=== PATIENT | female | born 1965 | race Caucasian/White ===

== ENCOUNTER → 2017-01-23 | Day surgery (SDC) | payer OTHER ==
[~2017-01-23] VITALS: Ht 160 cm; Wt 75.8 kg
[~2017-01-23] MED LIST: 0.9% Sodium Chloride 1,000 ML IV ONE; ACET500C49 PO; ALBU2.5V4 INHALATION; CHOL10008 PO; FERR325T40 PO; LORA10CA9 PO; NAPR250T5 PO; Sodium Chloride LOK Flush 10 mL Syringe IV PRN; TRIA10.8 NS; fentaNYL-PF 50 mCg/mL 2 mL Inj IVPUSH PRN
[2017-01-23 08:06] VITALS: BP 145/93; PULSE 70; RESP 14; O2SAT 99
[2017-01-23 08:51] VITALS: BP 123/67; PULSE 65; RESP 14; O2SAT 95
[2017-01-23 09:01] VITALS: PULSE 74; RESP 16; O2SAT 98
[2017-01-23 09:11] VITALS: BP 112/69; PULSE 77; RESP 16; O2SAT 100
[2017-01-23 09:21] VITALS: BP 113/74; PULSE 67; RESP 16; O2SAT 99
--- NOTE | 2017-01-23 11:37 | ENDO ---
[address] [address] ENDOSCOPY PROCEDURE PATIENT: NAKUL WILSON : 1965 MR#: [id number] ADMIT: 01/23/2017 JOB ID: [id number] DATE: 01/23/2017 TYPE OF OPERATION: Colonoscopy. PREOPERATIVE DIAGNOSIS(ES): Colorectal cancer screening. POSTOPERATIVE DIAGNOSIS(ES): Sigmoid diverticulosis. ANESTHESIA: 1. Fentanyl 100 mcg. 2. Versed 5 mg IV administered. COMPLICATION: None. BLOOD LOSS: Minimal. DESCRIPTION OF PROCEDURE: After risks and benefits were explained to the patient, informed consent was obtained. After anesthesia administered, colonoscope was then inserted from the rectum to the terminal ileum. Mucosa carefully examined. Prep of the patient was excellent. After procedure was done, the scope was withdrawn and the procedure terminated. FINDINGS: Upon inspection of the anus, no masses, hemorrhoids, ulcers, fissures that were seen. Throughout the entire examination, no polyps, masses or lesions. There was mild sigmoid diverticulosis. Retroflexion was normal. IMPRESSIONS: Mild sigmoid diverticulosis. RECOMMENDATIONS: 1. High-fiber diet. 2. Repeat colonoscopy in 10 years for colorectal cancer screening.
== END | disposition home or self-care (01) ==
LOC: END 01:11
PROVIDERS: ATTEND Internal Medicine Gastroenterology
DX: Z12.11 Encounter for screening for malignant neoplasm of colon (principal); K57.30 Diverticulosis of large intestine without perforation or abscess without bleeding; J45.20 Mild intermittent asthma, uncomplicated; J30.9 Allergic rhinitis, unspecified; D64.9 Anemia, unspecified
CPT/HCPCS: G0121; G0500; J2250; J3010; J7030